=== PATIENT | female | born 1960 | race Caucasian/White ===

== ENCOUNTER 2019-10-12 14:40 | Outpatient (CLI) | payer OTHER, SELFPAY | END 2019-10-12 14:41 | disposition home or self-care (01) | LOC: ANHAUDIO 14:41 | PROVIDERS: PCP Family Medicine; Visit Provider Family Medicine | DX: H90.3 Sensorineural hearing loss, bilateral (principal) | CPT/HCPCS: 92557; 92567 ==

== ENCOUNTER → 2019-10-19 11:22 | Outpatient (CLI) | payer OTHER, SELFPAY ==
--- NOTE | ~2019-10-19 | MM_ITS ---
EXAMINATION: MM screening nichole BI w courtney HISTORY: Screening mammogram TECHNIQUE: Craniocaudal and mediolateral oblique 3-D tomosynthesis images were obtained and synthetic 2-D images were generated. CAD analysis was submitted and interpreted. COMPARISON: Comparison to multiple prior studies sequentially, with oldest reviewed study dated 04/28. BREAST PARENCHYMAL COMPOSITION: There are scattered areas of fibroglandular density. FINDINGS: There is focal asymmetry superiorly in the right breast on MLO view. There is focal asymmet ry posteriorly at the right breast laterally. The left breast is stable without evidence for malignancy. IMPRESSION: 1. Focal asymmetries in the right breast. 2. Additional mammographic views and possible breast ultrasound are recommended. BI-RADS Category 0: Incomplete: Needs additional imaging evaluation. Reviewed, dictated and finalized at location A. IMPRESSION: 1. Focal asymmetries in the right breast. 2. Additional mammographic views and possible breast ultrasound are recommended . BI-RADS Category 0: Incomplete: Needs additional imaging evaluation.
== END ==
PROVIDERS: PCP Family Medicine; Visit Provider Family Medicine
DX: Z12.31 Encounter for screening mammogram for malignant neoplasm of breast (principal); R92.8 Other abnormal and inconclusive findings on diagnostic imaging of breast
CPT/HCPCS: 77063; 77067

== ENCOUNTER → 2019-11-02 07:41 | Outpatient (CLI) | payer OTHER, SELFPAY ==
--- NOTE | ~2019-11-02 | MMUS_ITS ---
EXAMINATION: MM diagnostic mammo unilat RT, US breast RT limited HISTORY: Right breast asymmetries on screening mammogram TECHNIQUE: Additional 3-D tomosynthesis images of the right breast were performed and synthetic 2-D i mages were generated. CAD analysis was submitted and interpreted. High resolution limited right breas t ultrasound was performed. COMPARISON: 10/19/2019, 07/26/2018, 06/22/2016, 03/08/2013 FINDINGS: MAMMOGRAPHIC FINDINGS: Asymmetry is present in the posterior third of the breast on the craniocaudal view which has a simila r appearance to prior mammograms with spot compression. No suspicious architectural distortion or annette cification are identified. Right breast asymmetry described on the mediolateral oblique view does not definitely persist with spot compression. ULTRASOUND: There is a 3 mm round, hypoechoic, circumscribed mass with no posterior features at the 9:00 location 3 cm from the nipple. A 2 mm mass and a 4 mm x 2 mm oval mass with similar sonographic features are seen near the nipple and at the 11:00 location 6 cm from the nipple, respectively. IMPRESSION: 1. Probably benign right breast masses. 2. Recommend 6 month follow-up right diagnostic mammogram and ultrasound. BI-RADS category 3, probably benign findings. Reviewed, dictated and finalized at location A. IMPRESSION: 1. Probably benign right breast masses. 2. Recommend 6 month follow-up right diagnostic mammogram and ultrasound. BI-RADS category 3, probably benign findings.
== END ==
PROVIDERS: PCP Family Medicine; Visit Provider Family Medicine
DX: R92.8 Other abnormal and inconclusive findings on diagnostic imaging of breast (principal)
CPT/HCPCS: 76642; 77065

== ENCOUNTER 2020-01-04 13:50 | Outpatient (CLI) | payer OTHER, SELFPAY ==
--- NOTE | ~2020-01-04 | XR_ITS ---
EXAMINATION: XR chest 2V EXAM DATE: 01/04/2020 14:06 INDICATION: Cough. TECHNIQUE: Frontal and lateral projections of the chest obtained and reviewed. There is no prior karoline dy for comparison. FINDINGS: The lungs are clear. There are no pleural effusions. The cardiomediastinal silhouette is within normal limits. There is no pneumothorax suspected. The bones and soft tissues are unremarkab le. IMPRESSION: Unremarkable chest x-ray exam. Reviewed, dictated and finalized at location A.
== END 2020-01-04 13:51 | disposition home or self-care (01) ==
PROVIDERS: PCP Family Medicine; Visit Provider Family Medicine
DX: R05 Cough (principal)
CPT/HCPCS: 71046

== ENCOUNTER 2020-02-17 06:47 | Outpatient (NON) | payer OTHER, SELFPAY ==
[2020-02-17 22:14] LABS: SARS-CoV-2 RNA PCR Negative
== END 2020-02-17 06:48 ==
LOC: ANHCOVIDDT 06:47
PROVIDERS: Physician Assistant; PCP Family Medicine; Visit Provider Family Medicine
DX: Z20.828 Contact with and (suspected) exposure to other viral communicable diseases (principal); R68.89 Other general symptoms and signs
CPT/HCPCS: 87635; C9803; U0003

== ENCOUNTER → 2020-08-16 07:49 | Outpatient (CLI) | payer OTHER, SELFPAY ==
--- NOTE | ~2020-08-16 | MMUS_ITS ---
EXAMINATION: MM diagnostic nichole RT w courtney, US breast RT complete HISTORY: Six-month follow-up of probably benign right breast masses TECHNIQUE: Full field and spot ML, MLO and craniocaudal 3-D tomosynthesis images of the right breast were performed and synthetic 2-D images were generated. CAD analysis was submitted and interpreted. H igh resolution complete right breast ultrasound was performed. COMPARISON: 11/02/2019 diagnostic right mammogram and limited right breast ultrasound examination 10/19/2019 bilateral digital screening mammogram BREAST PARENCHYMAL COMPOSITION: There are scattered areas of fibroglandular density. FINDINGS: MAMMOGRAPHIC FINDINGS: No interval new or enlarging mass or architectural distortion or any malignant calcification, skin th ickening or retraction of the right breast is evident compared to 10/19/2019. ULTRASOUND: 9:00 3 cm from nipple: 2.5 x 2.6 mm circumscribed hypoechoic lesion with central fatty density, possi fifi a small lymph node 11:00 6 cm from nipple: 2 x 3.3 mm cyst Subareolar: 1.9 x 2.2 mm sonolucency with through transmission posterior enhancement, consistent with small cyst No suspicious mass or shadowing is evident. IMPRESSION: 1. No mammographic evidence of malignancy; no significant change since 10/19/2019 2. Routine mammographic screening is recommended BI-RADS Category 2: Benign finding(s). Reviewed, dictated and finalized at location A. IMPRESSION: 1. No mammographic evidence of malignancy; no significant change since 10/19/2019 2. Routine mammographic screening is recommended BI-RADS Category 2: Benign finding(s).
== END ==
PROVIDERS: PCP Family Medicine; Visit Provider Family Medicine
DX: R92.8 Other abnormal and inconclusive findings on diagnostic imaging of breast (principal)
CPT/HCPCS: 76641; 77061; 77065; G0279

== ENCOUNTER → 2021-05-30 12:59 | Outpatient (CLI) | payer OTHER, SELFPAY ==
--- NOTE | ~2021-05-30 | CT_ITS ---
EXAMINATION:CT lung screening DATE: 05/30/2021 13:14 INDICATION: Personal history of tobacco dependence. Current smoker with 45 pack year history. TECHNIQUE: Computed tomography (CT) of the chest was performed without intravenous contrast. Automate d exposure control and iterative reconstruction technique were employed. The dose-length product (DLP ) was 74.20 mGy-cm. COMPARISON: None. FINDINGS: There is mild scarring at the lung apices. There is mild emphysema. No pleural effusion. Th e heart size is normal. There are coronary artery calcifications. No pericardial effusion. There is m ild thoracic spondylosis. IMPRESSION: 1. Lung-RADS category 2: Benign appearance or behavior. Continue annual screening with noncontrast lo w-dose chest CT in 12 months. Reviewed, dictated and finalized at location E. TRY FARMWORKER IMPRESSION: 1. Lung-RADS category 2: Benign appearance or behavior. Continue annual screeni ng with noncontrast low-dose chest CT in 12 months.
== END ==
PROVIDERS: PCP Family Medicine; Visit Provider Family Medicine
DX: Z12.2 Encounter for screening for malignant neoplasm of respiratory organs (principal); Z87.891 Personal history of nicotine dependence
CPT/HCPCS: 71271

== ENCOUNTER → 2021-08-02 09:10 | Outpatient (CLI) | payer OTHER, SELFPAY ==
--- NOTE | ~2021-08-02 | DEXA_ITS ---
Bone Density Report Name: ROYA MOREL Age: 60 Sex: Female Ethnicity: White Date of : 1960 Indication: postmenopausal; screening for osteoporosis; Referring Provider: DAVID LAWSON Study: Bone densitometry was performed. Exam Date: August 02, 2021 Accession number: [id number] Bone Density: Region BMD T-score Z-score Classification AP Spine (L1-L4) 0.998 -0.4 1.1 Normal Femoral Neck (Left) 0.724 -1.1 0.2 Osteopenia Total Hip (Left) 0.897 -0.4 0.7 Normal Femoral Neck (Right) 0.705 -1.3 0.1 Osteopenia Total Hip (Right) 0.835 -0.9 0.2 Normal Total Hip Mean 0.866 -0.7 0.5 Normal World Health Organization criteria for BMD impression classify patients as: Normal (T-score at or above -1.0), Osteopenia (T-score between -1.0 and -2.5), or Osteoporosis (T-score at or below -2.5). 10-year Fracture Risk(1): Major Osteoporotic Fracture 7.7% Hip Fracture 1.0% Reported Risk Factors: [place] (), Neck BMD=0.705, BMI=28.9, smoking (1) FRAX(R) Version 3.08. Fracture probability calculated for an untreated patient. Fracture probability may be lower if the patient has received treatment. Previous Exams: Region Exam Age BMD T-score BMD Change BMD Change Date g/cm2 vs Baseline vs Previous AP Spine(L1-L4) 08/02/2021 60 0.998 -0.4 -0.007 -0.007 06/22/2016 55 1.005 -0.4 Total Hip(Left) 08/02/2021 60 0.897 -0.4 -0.005 -0.005 06/22/2016 55 0.902 -0.3 Total Hip(Right) 08/02/2021 60 0.835 -0.9 -0.001 -0.001 06/22/2016 55 0.836 -0.9 *Denotes significance at 95% confidence level, LSC for AP Spine = 0.022 g/cm2, LSC for Total Hip = 0.027 g/cm2 Clinical Information Provided by Patient: Smokes Patient maximum height was 60 Menopause Age: 45 No regular weight bearing exercise Does not regularly consume dairy products Drinks caffeinated beverages Onset of menses at age 11 Number of children 2 Impression: The patient has low bone mass, based on the Right Femoral Neck T-score. The patient has an estimated ten-year risk of hip fracture of 1% and an estimated ten-year risk of major fracture of 7.7%, based on the WHO FRAX algorithm. The patient has risk factors, including: smoking. No significant bone loss was observed. Discussion: BONE DENSITY IS LOW AT ONE OR MORE SKELETAL SITES. This patient's lowest T-score is low at one or more skeletal sites. It meets the World He
--- NOTE | ~2021-08-02 | MM_ITS ---
EXAMINATION: MM screening nichole BI w courtney HISTORY: Screening mammogram TECHNIQUE: Craniocaudal and mediolateral oblique 3-D tomosynthesis images were obtained and synthetic 2-D images were generated. CAD analysis was submitted and interpreted. COMPARISON: 08/16/2020 and 11/02/2019 diagnostic right mammogram and limited right breast ultrasound 10/19/2019, 07/26/2018 bilateral screening mammogram examinations BREAST PARENCHYMAL COMPOSITION: There are scattered areas of fibroglandular density. FINDINGS: There is no evidence of suspicious mass, calcification, or architectural distortion to sugg est malignancy in either breast. There has been no suspicious interval change. IMPRESSION: 1. No mammographic evidence of malignancy. 2. Recommend routine screening mammography in one year. BI-RADS Category 1: Negative Reviewed, dictated and finalized at location A.
== END ==
PROVIDERS: PCP Family Medicine; Visit Provider Family Medicine
DX: Z12.31 Encounter for screening mammogram for malignant neoplasm of breast (principal); Z78.0 Asymptomatic menopausal state; M85.852 Other specified disorders of bone density and structure, left thigh; M85.851 Other specified disorders of bone density and structure, right thigh
CPT/HCPCS: 77063; 77067; 77080

== ENCOUNTER 2022-06-12 09:13 | Emergency (ER) | payer OTHER, SELFPAY ==
--- NOTE | ~2022-06-12 | XR_ITS ---
XR humerus RT 06/12/2022 13:14 INDICATION: Right arm pain after recent fall PROCEDURE: 2 views right humerus COMPARISON: No prior studies for comparison. FINDINGS: Fracture, dislocation or subluxation is not identified. The soft tissues appear within norm al limits. No foreign bodies are identified. IMPRESSION: 1: NO ACUTE BONE OR JOINT ABNORMALITY IDENTIFIED. Reviewed, dictated and finalized at location B. WEAR SALESPERSON
--- NOTE | ~2022-06-12 | XR_ITS ---
EXAMINATION: XR shoulder RT min 2V, XR clavicle RT DATE: 06/12/2022 12:48 INDICATION: Right shoulder pain post fall TECHNIQUE: 1. AP internally and externally rotated, AP oblique externally rotated and transscapular Y views of t he right shoulder were obtained. 2. AP and angled AP views of the right clavicle were obtained. COMPARISON: None FINDINGS: Normal alignment. No fracture. Glenohumeral joint is normal. Mild acromioclavicular osteoarthritis. Soft tissues are unremarkable. Visualized portion of the lungs are clear. IMPRESSION: Mild right acromioclavicular osteoarthritis. No acute osseous abnormality. Reviewed, dictated and finalized at location A. ICK HAND IMPRESSION: Mild right acromioclavicular osteoarthritis. No acute osseous abnormality.
[2022-06-12 09:17] VITALS: BP 153/80; PULSE 102; RESP 16; TEMP 37.2; O2SAT 99
[2022-06-12 12:02] VITALS: BP 159/82; PULSE 85; RESP 15; TEMP 36.6; O2SAT 100
--- NOTE | 2022-06-12 12:36 | ED.GENADULT ---
HPI - General Adult General Chief complaint: Extremity Injury, Upper Stated complaint: fall 06/02, right arm pain Time Seen by Provider: 06/12/22 11:14 Source: patient Mode of arrival: ambulatory Limitations: no limitations History of Present Illness HPI narrative: This is a 61-year-old female who comes into the ED with chief complaint of right upper arm and shoulder pain x10 days. States she did have a fall on 's where she fell directly onto the right arm. She has not yet seen any providers for this. Has been taking Tylenol regularly for pain with minimal relief. Has also tried icing with minimal relief. States range of motion is limited due to pain. Denies numbness, weakness, fevers, chills, skin changes. Related Data Allergies Allergy/AdvReac Type Severity Reaction Status Date / Time No Known Allergies Allergy Mild Verified 10/24/21 07:21 Review of Systems Review of Systems: CONSTITUTIONAL: Denies fever, chills, or sweats. EYES: Denies visual changes, redness, or discharge. SKIN: Denies rash or itching. Denies skin changes MUSCULOSKELETAL: Endorses right shoulder pain and right upper arm pain. Denies back pain, joint pain, or myalgia. Denies any further site of injury. NEUROLOGIC: Denies headache, numbness, dizziness, or weakness. PSYCHIATRIC: Denies anxiety or depression. [facility] Past Medical History Medical History (Updated 06/12/22 @ 13:21 by Brice Milner PA-C) Anxiety Benign essential HTN HUGHES (hard of hearing) Tobacco abuse Family History Family History Mother Patient's mother is , Onset Age: 84 Father Patient's father is in good health Sibling Patient's sister is in good health Patient's brother is in good health Social History Social History (Updated 10/24/21 @ 07:26 by Kaur Gibson) Social History: Smoking packs per day: 0.5 Smoking cigarettes per day: 10.0 Years smoked: 30 Smoking pack-years: 15.00 Smoking status: Current every day smoker Tobacco type: cigarettes Second hand tobacco smoke exposure: No Alcohol intake: current Alcohol use details: Occasionally Substance use: never Substance use type: does not use Living arrangements: with family Occupation/Education: occupation Gender identity (if verbalized by the patient): Female Sexual Orientation (if Verbalized by the Patient): Straight or Heterosexual Exam Narrative: GENERAL: Well-appearing, well-nourished, and in no acute distress. HEAD: Normocephalic, atraumatic. EYES: PERRLA and EOMI. EXTREMITIES: Right shoulder: Minimal tenderness present in the medial and lateral right upper arm. Moderately reduced active and passive range of motion of the right shoulder due to pain. She has a positive empty can test. Soft compartments. Left shoulder: Within normal limits MSK exam is otherwise benign. Normal range of motion. No edema. SKIN: Warm, dry, no rash. NEURO: Alert and oriented x3. No focal deficits. Neurovascularly intact distally. PSYCH: Normal mood and affect. Course Vital Signs Vital signs: Vital Signs Temperature 99.0 F 06/12/22 09:17 Pulse Rate 102 H 06/12/22 09:17 Respiratory Rate 16 06/12/22 09:17 Blood Pressure 153/80 H 06/12/22 09:17 Pulse Oximetry 99 06/12/22 09:17 Oxygen Delivery Room Air 06/12/22 09:17 Temperature 97.7 F 06/12/22 13:56 Pulse Rate 72 06/12/22 13:56 Respiratory Rate 16 06/12/22 13:56 Blood Pressure 126/75 06/12/22 13:56 Pulse Oximetry 99 06/12/22 13:56 Oxygen Delivery Room Air 06/12/22 12:02 Medical Decision Making [facility] Narrative Medical decision making narrative: This is a 61-year-old female comes in with chief complaint of right shoulder pain. Had a fall 10 days ago directly onto the arm. Exam shows positive empty can test. I do feel that her symptoms are consistent with a rotator cuff tear. X-ray of the right wendy
[2022-06-12] MEDS: IBUPROFEN 600 MG TABLET PO (13:01)
[2022-06-12 13:56] VITALS: BP 126/75; PULSE 72; RESP 16; TEMP 36.5; O2SAT 99
== END 2022-06-12 13:58 | disposition home or self-care (01) ==
PROVIDERS: Emergency Provider Physician Assistant; PCP Family Medicine
DX: S49.91XA Unspecified injury of right shoulder and upper arm, initial encounter (principal); I10 Essential (primary) hypertension; F17.210 Nicotine dependence, cigarettes, uncomplicated; M19.011 Primary osteoarthritis, right shoulder; W19.XXXA Unspecified fall, initial encounter
CPT/HCPCS: 73000; 73030; 73060; 99283; A9270

== ENCOUNTER 2023-10-29 10:49 | Outpatient (CLI) | payer BC, SELFPAY ==
--- NOTE | ~2023-10-29 | CT_ITS ---
CT Scan of the Chest without Contrast: Clinical Indication: Lung cancer screening, nicotine dependence Technique: Contiguous sections were acquired throughout the chest without intravenous contrast. Dose reduction technique was used on this scan by utilizing automated exposure control and iterative recon struction technique. The dose-length product (DLP) was 79.36 mGy-cm. COMPARISON: 05/30/2021 Findings: There is no evidence of any significant mediastinal, hilar or axillary lymphadenopathy. Coronary raul ry calcifications are present. There is no evidence of pleural or pericardial effusion. The lungs are clear. No pulmonary nodules or infiltrates are noted. Images through the upper abdomen reveal diffuse hepatic steatosis. Impression: Lung RADS 1: Negative. 12 month follow-up screening CT advised. Diffuse hepatic steatosis. Reviewed, dictated and finalized at location . Impression: Lung RADS 1: Negative. 12 month follow-up screening CT advised. Diffuse hepatic steatosis.
--- NOTE | ~2023-10-29 | MM_ITS ---
EXAMINATION: MM screening nichole BI w courtney HISTORY: Screening TECHNIQUE: Craniocaudal and mediolateral oblique 3-D tomosynthesis images were obtained and synthetic 2-D images were generated. CAD analysis was submitted and interpreted. COMPARISON: Comparison to multiple prior studies sequentially, with oldest reviewed study dated 09/2016. BREAST PARENCHYMAL COMPOSITION: Not dense: There are scattered areas of fibroglandular density. FINDINGS: There is no evidence of suspicious mass, calcification, or architectural distortion to sugg est malignancy in either breast. There has been no suspicious interval change. IMPRESSION: 1. No mammographic evidence of malignancy. 2. Recommend routine screening mammography in one year. BI-RADS Category 1: Negative Reviewed, dictated and finalized at location B.
== END 2023-10-29 10:50 ==
PROVIDERS: PCP Physician Assistant; Visit Provider Physician Assistant
DX: Z12.2 Encounter for screening for malignant neoplasm of respiratory organs (principal); Z12.31 Encounter for screening mammogram for malignant neoplasm of breast; Z87.891 Personal history of nicotine dependence
CPT/HCPCS: 71271; 77063; 77067

== ENCOUNTER 2023-11-23 07:46 | Outpatient (CLI) | payer BC, SELFPAY ==
--- NOTE | ~2023-11-23 | US_ITS ---
Limited ABDOMINAL ULTRASOUND Ordering provider: Jody Glil PA-C History: . K76.0 - Fatty (change of) liver, not elsewhere classified . Comparison: None. FINDINGS: LIVER: Normal size. Fat infiltration .. No focal hepatic lesions or perihepatic fluid collections are identified. GALLBLADDER: Unremarkable. No evidence for stones, sludge, gallbladder wall thickening or pericholecy stic fluid collections. The wall thickness is 0.2 cm. A negative sonographic Carr's sign was noted. BILIARY DUCTS: No evidence for intra or extrahepatic biliary dilation. Common bile duct measures 4 mm in diameter which is within normal limits. PANCREAS: Normal echotexture and size. KIDNEYS: Right measures 9.4 cm in length . There is no evidence for hydronephrosis, solid renal mass, renal calculi or perinephric fluid collections. No renal cysts. UPPER ABDOMINAL AORTA: Normal in caliber. IVC: Patent. FREE FLUID: None. IMPRESSION: Fat infiltration of the liver otherwise, Unremarkable limited ultrasound of the abdomen. Reviewed, dictated and finalized at location A.
== END 2023-11-23 07:47 ==
LOC: MICIMG 07:47
PROVIDERS: PCP Physician Assistant; Visit Provider Student in an Organized Health Care Education/Training Program
DX: K76.0 Fatty (change of) liver, not elsewhere classified (principal)
CPT/HCPCS: 76705

== ENCOUNTER 2024-10-31 09:16 | Outpatient (CLI) | payer BC, SELFPAY ==
--- NOTE | ~2024-10-31 | CT_ITS ---
CT Scan of the Chest without Contrast: Clinical Indication: Lung cancer screening, nicotine dependence Technique: Contiguous sections were acquired throughout the chest without intravenous contrast. Dose reduction technique was used on this scan by utilizing automated exposure control and iterative recon struction technique. The dose-length product (DLP) was 84.15 mGy-cm. COMPARISON: 10/29/2023 Findings: There is no evidence of any significant mediastinal, hilar or axillary lymphadenopathy. Coronary raul ry calcifications are present. There is no evidence of pleural or pericardial effusion. The lungs are clear. No pulmonary nodules or infiltrates are noted. Images through the upper abdomen reveal diffuse hepatic steatosis. Impression: Lung RADS 1: Negative. 12 month follow-up screening CT advised. Reviewed, dictated and finalized at location . Impression: Lung RADS 1: Negative. 12 month follow-up screening CT advised.
== END 2024-10-31 09:17 | disposition home or self-care (01) ==
LOC: MICIMG 09:17
PROVIDERS: PCP Family Medicine; Visit Provider Physician Assistant
DX: Z12.2 Encounter for screening for malignant neoplasm of respiratory organs (principal); F17.210 Nicotine dependence, cigarettes, uncomplicated
CPT/HCPCS: 71271